=== PATIENT | female | born 1940 | race Caucasian/White ===

== ENCOUNTER 2016-06-19 08:11 | Outpatient (CLI) | payer OTHER ==
[2015-07-18 10:56] VITALS: BP 141/65
== END 2016-06-19 08:12 ==
LOC: OUT 08:11
PROVIDERS: ATTEND General Practice
DX: N95.2 Postmenopausal atrophic vaginitis (principal)
CPT/HCPCS: G0463

== ENCOUNTER 2016-07-03 07:57 | Outpatient (CLI) | payer OTHER ==
[2015-07-18 10:56] VITALS: BP 141/65
== END 2016-07-03 08:00 ==
LOC: LAB 07:57
PROVIDERS: ATTEND General Practice
DX: N95.2 Postmenopausal atrophic vaginitis (principal); R30.0 Dysuria
CPT/HCPCS: G0463

== ENCOUNTER 2016-08-13 08:05 | Outpatient (CLI) | payer OTHER ==
[2015-07-18 10:56] VITALS: BP 141/65
[2016-08-13 08:17] LABS: BASOPHILS % 0.4 (0.0-1.5); EOSINOPHILS % 2.7 % (0.0-6.8); LYMPHOCYTES # 1.9 # k/uL (0.6-4.0); MEAN CORPUSCULAR HEMOGLOBIN 30.7 pg (28.0-34.0); MONOCYTES # 0.5 # k/uL (0.0-0.9); MONOCYTES % 6.3 % (0.0-11.0); NEUTROPHILS # 5.4 # k/uL (1.4-7.7)
== END 2016-08-13 08:06 ==
LOC: LAB 08:05
PROVIDERS: ATTEND Family Medicine
DX: E78.00 Pure hypercholesterolemia, unspecified (principal); E53.8 Deficiency of other specified B group vitamins
CPT/HCPCS: 36415; 80061; 82607; 85025

== ENCOUNTER 2016-10-09 08:42 | Outpatient (CLI) | payer OTHER ==
[2015-07-18 10:56] VITALS: BP 141/65
== END 2016-10-09 08:44 ==
LOC: OUT 08:42
PROVIDERS: ATTEND General Practice
DX: N95.2 Postmenopausal atrophic vaginitis (principal)
CPT/HCPCS: G0463

== ENCOUNTER 2017-01-01 09:11 | Outpatient (CLI) | payer OTHER ==
[2015-07-18 10:56] VITALS: BP 141/65
== END 2017-01-01 09:12 ==
LOC: OUT 09:11
PROVIDERS: ATTEND General Practice
DX: N95.2 Postmenopausal atrophic vaginitis (principal); R35.0 Frequency of micturition; R39.15 Urgency of urination
CPT/HCPCS: G0463

== ENCOUNTER 2017-01-29 07:02 | Day surgery (SDC) | payer OTHER ==
[2015-07-18 10:56] VITALS: BP 141/65
[2017-01-29 07:53] LABS: BASOPHILS % 0.4 (0.0-1.5); EOSINOPHILS % 1.8 % (0.0-6.8); MEAN CORPUSCULAR HEMOGLOBIN 30.4 pg (28.0-34.0); MEAN CORPUSCULAR VOLUME 87.6 fl (80.0-100.0); MONOCYTES % 5.6 % (0.0-11.0); NEUTROPHILS # 5.6 # k/uL (1.4-7.7)
[2017-01-29] MEDS ORDERED: LACTATED RINGERS 1,000 ML IV.SOLN IV ONE (08:00)
[2017-01-29] MEDS ORDERED: SALINE FLUSH 10 ML DISP.SYRIN IVF ONE (08:00)
[2017-01-29] MEDS ORDERED: PROPOFOL 200 MG/20 ML VIAL IV ONE (08:00)
[2017-01-29] MEDS ORDERED: NORMAL SALINE 1,000 ML IV.SOLN IV ONE (08:00)
[2017-01-29 08:12] LABS: eGFR (African) > 60; eGFR (Non-African) > 60
--- NOTE | 2017-01-30 11:58 | Operative Note ---
SURGEON: Dr. Rocky Glass ANESTHESIA: General anesthesia. ESTIMATED BLOOD LOSS: Negligible. PREOPERATIVE DIAGNOSES: 1. Dysuria. 2. Urgency. POSTOPERATIVE DIAGNOSIS: Pending pathology. PROCEDURE PERFORMED: Cystourethroscopy with bladder biopsy. OPERATIVE PROCEDURE AND FINDINGS: Patient was taken to the operating room. After an adequate level of general anesthesia, she was prepped and draped in the lithotomy position. A 12-degree lens scope was inserted through the urethra into the urinary bladder. Normal saline was used as the distending media for the bladder. There was increased trabeculation and neovascularization of the bladder mucosa consistent with chronic cystitis. Flight Engineer biopsy of the bladder mucosa was taken. Pictures of the bladder mucosa and the ureteral orifices were taken. The trigone of the bladder was unremarkable in appearance, as was the urethra. This ended the cystoscopy. All instruments were removed from the bladder. Normal saline was allowed to escape. The bladder biopsy was sent to pathology. The patient was awakened in the operating room and transferred to the recovery room in very good condition. cc: Dr. Jn GARCIA
== END 2017-01-29 07:03 ==
LOC: OPSURG 07:02
PROVIDERS: ATTEND General Practice
DX: R30.0 Dysuria (principal); R39.15 Urgency of urination
CPT/HCPCS: 36415; 80053; 82607; 84439; 84443; 84481; 85025; 85610; 85730; 88305; A4355; J2704; J7030; J7120; 52204; S1016

== ENCOUNTER 2017-02-26 08:34 | Outpatient (CLI) | payer OTHER ==
[2015-07-18 10:56] VITALS: BP 141/65
== END 2017-02-26 08:35 ==
LOC: OUT 08:34
PROVIDERS: ATTEND General Practice
DX: R10.2 Pelvic and perineal pain (principal)
CPT/HCPCS: G0463

== ENCOUNTER 2017-03-01 13:01 | Outpatient (CLI) | payer OTHER ==
[2015-07-18 10:56] VITALS: BP 141/65
== END 2017-03-01 13:02 ==
LOC: LAB 13:01
PROVIDERS: ATTEND Family Medicine
DX: E11.9 Type 2 diabetes mellitus without complications (principal)
CPT/HCPCS: 36415; 83036

== ENCOUNTER 2017-05-21 08:13 | Outpatient (CLI) | payer OTHER ==
[2015-07-18 10:56] VITALS: BP 141/65
== END 2017-05-21 08:14 ==
LOC: OUT 08:13
PROVIDERS: ATTEND General Practice
DX: R39.15 Urgency of urination (principal)
CPT/HCPCS: G0463

== ENCOUNTER 2017-08-08 07:13 | Outpatient (CLI) | payer OTHER ==
[2015-07-18 10:56] VITALS: BP 141/65
== END 2017-08-08 07:14 ==
LOC: LAB 07:13
PROVIDERS: ATTEND Family Medicine
DX: E11.9 Type 2 diabetes mellitus without complications (principal); E78.00 Pure hypercholesterolemia, unspecified
CPT/HCPCS: 36415; 80061; 83036

== ENCOUNTER 2018-05-08 07:09 | Outpatient (CLI) | payer OTHER ==
[2015-07-18 10:56] VITALS: BP 141/65
[2018-05-08 09:04] LABS: eGFR (Non-African) > 60
[2018-05-08 12:10] LABS: BASOPHILS % 0.5 (0.0-1.5); EOSINOPHILS % 2.5 % (0.0-6.8); MONOCYTES % 6.6 % (0.0-11.0); NEUTROPHILS # 4.2 # k/uL (1.4-7.7)
== END 2018-05-08 07:10 ==
LOC: LAB 07:09
PROVIDERS: ATTEND Family Medicine
DX: E03.9 Hypothyroidism, unspecified (principal); E11.9 Type 2 diabetes mellitus without complications; I10 Essential (primary) hypertension
CPT/HCPCS: 36415; 80053; 83036; 84443; 85025

== ENCOUNTER 2018-08-11 07:34 | Outpatient (CLI) | payer OTHER ==
[2015-07-18 10:56] VITALS: BP 141/65
[2018-08-11 07:53] LABS: MEAN CORPUSCULAR HEMOGLOBIN 29.6 pg (28.0-34.0)
[2018-08-11 07:54] LABS: EOSINOPHILS % 2.3 % (0.0-6.8); NEUTROPHILS # 5.3 # k/uL (1.4-7.7)
[2018-08-11 08:06] LABS: eGFR (Non-African) > 60
== END 2018-08-11 07:36 ==
LOC: LAB 07:34
PROVIDERS: ATTEND Internal Medicine Cardiovascular Disease
DX: E78.5 Hyperlipidemia, unspecified (principal); I10 Essential (primary) hypertension; I25.10 Atherosclerotic heart disease of native coronary artery without angina pectoris
CPT/HCPCS: 36415; 80053; 80061; 84443; 85025

== ENCOUNTER 2018-09-03 14:01 | Outpatient (CLI) | payer OTHER ==
[2015-07-18 10:56] VITALS: BP 141/65
== END 2018-09-03 14:03 ==
LOC: LAB 14:01
PROVIDERS: ATTEND Family Medicine
DX: E03.9 Hypothyroidism, unspecified (principal)
CPT/HCPCS: 36415; 84443

== ENCOUNTER 2019-05-14 07:53 | Outpatient (CLI) | payer OTHER ==
[2015-07-18 10:56] VITALS: BP 141/65
== END 2019-05-14 07:58 ==
LOC: LAB 07:53
PROVIDERS: ATTEND Family Medicine
DX: E11.9 Type 2 diabetes mellitus without complications (principal)
CPT/HCPCS: 36415; 80061